=== PATIENT | male | born 1990 | race African-American/Black ===

== ENCOUNTER 2020-09-02 09:54 | Emergency (ER) | payer OTHER ==
[2020-09-02] MEDS ORDERED: Lidocaine Viscous Sol 2% 15 ml UD Cup ONE (10:07)
== END 2020-09-02 11:11 | disposition home or self-care (01) ==
LOC: CSHERS 09:54 → EDBD 09:54 → CSHERS 11:11
DX: T16.1XXA Foreign body in right ear, initial encounter (principal)
CPT/HCPCS: 99283

== ENCOUNTER 2021-10-07 14:26 | Emergency (ER) | payer OTHER ==
[2021-10-07] MEDS ORDERED: Acetaminophen 500 MG TAB ONE (15:36)
== END 2021-10-07 17:56 | disposition home or self-care (01) ==
LOC: CSHERS 14:26
DX: S20.224A Contusion of middle back wall of thorax, initial encounter (principal); W05.0XXA Fall from non-moving wheelchair, initial encounter
CPT/HCPCS: 72128